=== PATIENT | male | born 1980 | race Caucasian/White ===

== ENCOUNTER 2022-02-03 08:29 | Emergency (ER) | payer SELFPAY ==
[2022-02-03] VITALS (8 sets, daily range): BP systolic 105–153; BP diastolic 57–88; PULSE 41–55; RESP 14–23; TEMP 36.1; O2SAT 97–100; BMI 20.3
--- NOTE | 2022-02-03 08:58 | ED_ITS ---
HPI - General Adult General Chief complaint: Abdominal Pain Stated complaint: Abd pain, vomiting, weakness, chills, Time Seen by Provider: 02/03/22 08:58 Source: patient Mode of arrival: Ambulatory History of Present Illness HPI narrative: 41-year-old gentleman with no significant medical history notes that he typically has a low heart rate is otherwise quite healthy having a usual day yesterday until he went to bed and began having upper abdominal bandlike pain just above his umbilicus. Significant vomiting no diarrhea he is passing a small amount of flatus he describes no fevers but he does get diaphoretic with the emesis. He has no cough, palpitations, dyspnea, orthopnea. He is not complaining of headache however he does feel a near syncopal sensation with the severity of his abdominal pain. He describes no recent trauma or infectious disease. On further questioning he notes that he chronically has mid epigastric pain, does not have a regular physician. He does not typically have her nausea vomiting or with this pain. Related Data Previous Rx's Medication Instructions Recorded omeprazole 40 mg capsule,delayed 40 mg PO DAILY #30 caps 02/03/22 release ondansetron 4 mg disintegrating 4 mg PO Q8H PRN nausea and 02/03/22 tablet vomiting #20 tabs Allergies Allergy/AdvReac Type Severity Reaction Status Date / Time No Known Drug Allergies Allergy Verified 02/03/22 08:38 Review of Systems Review of Systems Narrative: Remainder of complete review of systems is otherwise unremarkable except for that included in the HPI. Patient History Substance Use Type: marijuana Exam Initial Vital Signs Initial Vital Signs: Vital Signs Temperature 96.9 F L 02/03/22 08:33 Pulse Rate 54 L 02/03/22 08:33 Respiratory Rate 18 02/03/22 08:33 Blood Pressure 130/69 02/03/22 08:33 Pulse Oximetry 97 02/03/22 08:33 Oxygen Delivery Method 02/03/22 08:33 General: Pale, deep circles under his eyes, appears to be in pain but Able to give a complete and coherent history. Well-nourished well-developed HEENT: dry mucous membranes, normal sclera with reactive pupils, Neck: supple Respiratory: Lungs are clear to auscultation, no wheezing no rales no rhonchi. Full and symmetrical air movement Cardiac: Regular rate and rhythm no murmurs no bruits Abdomen: Soft, mild diffuse upper abdominal tenderness, good bowel tones, no flank pain Skin: Warm and dry, no rashes Neurologic: Grossly neurologically intact with no obvious asymmetries or abnormalities Extremities: No trauma, well perfused Psych: Cooperative, appropriate insight and affect Course Orders Ordered: ED Orders 02/03/22 08:30 Complete Blood Count AUTO DIFF Stat Comprehensive Metabolic Panel Stat Lactate (Lactic Acid) Stat Lipase Stat Magnesium Stat Troponin I Stat 02/03/22 08:40 EKG-12 Lead Stat 02/03/22 08:53 COVID19 -Nasal RAPID/Pre-Proc Stat 02/03/22 09:06 Urinalysis and Microscopic Stat 02/03/22 09:42 CT abdomen pelvis w con Stat Hydromorphone HCl (Hydromorphone 0.5 Mg Inj) 0.5 mg IV Q15MIN PRN PRN Reason: Pain, Last Admin: 02/03/22 12:07 Dose: 0.5 mg Documented By: Admin: 02/03/22 09:14 Dose: 0.5 mg Documented By: JENNIFER Discontinued Medications Sodium Chloride (Normal Saline 0.9%) 1,000 mls @ 1,000 mls/hr IV BOLUS ONE Stop: 02/03/22 10:05 Last Infusion: 02/03/22 12:01 Dose: 0 mls/hr Documented By: Admin: 02/03/22 09:14 Dose: 1,000 mls/hr Documented By: JENNIFER Sodium Chloride (Normal Saline 0.9%) 1,000 mls @ 1,000 mls/hr IV BOLUS ONE Stop: 02/03/22 14:06 Last Infusion: 02/03/22 14:16 Dose: 0 mls/hr Documented By: Admin: 02/03/22 13:22 Dose: 1,000 mls/hr Documented By: AMBROSIO Ondansetron HCl (Ondansetron 4 Mg/2 Ml Inj) 4 mg IV NOW ONE Stop: 02/03/22 09:07 Last Admin: 02/03/22 09:13 Dose: 4 mg Documented By: JENNIFER Pantoprazole Sodium (Pantoprazole 40 Mg Vial) 80 mg IV NOW ONE Stop: 02/03/22 13:08 Last Admin: 02/03/22 13:24 Dose: 80 mg Documented By: AMBROSIO Vital Signs Vital signs: Vital Signs - 8 hr 02/03/22 08:33 02/03/22 09:12 02/03/22 09:30 Temperature 96.9 F L Pulse Rate 54 L 44 L Respiratory Rate 18 23 Blood Pressure 130/69 153/82 H Pulse Oximetry 97 100 Oxygen Delivery Method Room Air 02/03/22 09:30 02/03/22 09:49 02/03/22 09:49 Temperature Pulse Rate 44 L 45 L Respiratory Rate 23 16 Blood Pressure 138/81 Pulse Oximetry 97 100 Oxygen Delivery Method 02/03/22 10:00 02/03/22 10:00 02/03/22 10:30 Temperature Pulse Rate 41 L Respiratory Rate 23 Blood Pressure 150/88 H 138/82 Pulse Oximetry 98 Oxygen Delivery Method 02/03/22 10:30 02/03/22 11:00 02/03/22 11:00 Temperature Pulse Rate 43 L 45 L Respiratory Rate 16 22 Blood Pressure 131/81 Pulse Oximetry 100 100 Oxygen Delivery Method 02/03/22 14:00 Temperature Pulse Rate 55 L Respiratory Rate 14 Blood Pressure 105/57 L Pulse Oximetry 98 Oxygen Delivery Method Room Air Medical Decision Making Lab Data Result diagrams: 02/03/22 08:30 02/03/22 08:30 Labs: Lab Results 02/03/22 02/03/22 02/03/22 Range/Units 08:30 08:30 08:30 WBC 12.3 H (4.5-11.0) X10^3/uL RBC 5.44 (4.5-5.9) X10^6/uL Hgb 15.9 (13.5-17.5) g/dL Hct 46.5 (41-53) % MCV 85.5 (80-100) fL MCH 29.2 (26-34) PG MCHC 34.1 (30-36) % RDW 14.0 (11.6-14.8) % Plt Count 271 (150-400) X10^3/uL Neut % (Auto) 93.6 H (50-75) % Lymph % (Auto) 4.0 L (25-40) % Bill[place] % (Auto) 2.2 L (3-14) % Eos % (Auto) 0.1 L (2-4) % Baso % (Auto) 0.1 (0-2) % Neut # (Auto) 21761 H (9885-1835) /uL Lymph # (Auto) 500 L (0721-9745) /uL [place] # (Auto) 300 (0-900) /uL Eos # (Auto) 0 (0-450) /uL Baso # (Auto) 0 (0-100) /uL Sodium 138 (137-145) mmol/L Potassium 3.7 (3.4-5.1) mmol/L Chloride 101 (98-107) mmol/L Carbon Dioxide 24 (22-32) mmol/L BUN 19 (9-20) mg/dL Creatinine 0.62 L (0.66-1.25) mg/dL Estimated GFR > 60 (>60) mL/min BUN/Creatinine Ratio 30.6 H (6-22) Glucose 114 H (70-100) mg/dL Lactate (0.7-2.1) mmol/L Calcium 9.7 (8.4-10.2) mg/dL Magnesium 2.0 (1.6-2.3) mg/dL Total Bilirubin 1.5 H (0.2-1.3) mg/dL AST 32 (17-59) IU/L ALT 19 (<50) IU/L Alkaline Phosphatase 111 (38-126) U/L Troponin I < 0.012 (0.01-0.034) ng/mL Total Protein 8.0 (6.3-8.2) g/dL Albumin 4.8 (3.5-5.0) g/dL Globulin 3.2 (1.7-4.1) g/dL Albumin/Globulin Ratio 1.5 (1.0-2.8) Lipase 38 (23-300) U/L SARS-CoV-2 (PCR) (Negative) 02/03/22 02/03/22 02/03/22 Range/Units 08:30 08:53 12:13 WBC (4.5-11.0) X10^3/uL RBC (4.5-5.9) X10^6/uL Hgb (13.5-17.5) g/dL Hct (41-53) % MCV (80-100) fL MCH (26-34) PG MCHC (30-36) % RDW (11.6-14.8) % Plt Count (150-400) X10^3/uL Neut % (Auto) (50-75) % Lymph % (Auto) (25-40) % [place] % (Auto) (3-14) % Eos % (Auto) (2-4) % Baso % (Auto) (0-2) % Neut # (Auto) (4201-3916) /uL Lymph # (Auto) (6018-8192) /uL Bill[place] # (Auto) (0-900) /uL Eos # (Auto) (0-450) /uL Baso # (Auto) (0-100) /uL Sodium (137-145) mmol/L Potassium (3.4-5.1) mmol/L Chloride (98-107) mmol/L Carbon Dioxide (22-32) mmol/L BUN (9-20) mg/dL Creatinine (0.66-1.25) mg/dL Estimated GFR (>60) mL/min BUN/Creatinine Ratio (6-22) Glucose (70-100) mg/dL Lactate 2.2 H 1.5 (0.7-2.1) mmol/L Calcium (8.4-10.2) mg/dL Magnesium (1.6-2.3) mg/dL Total Bilirubin (0.2-1.3) mg/dL AST (17-59) IU/L ALT (<50) IU/L Alkaline Phosphatase (38-126) U/L Troponin I (0.01-0.034) ng/mL Total Protein (6.3-8.2) g/dL Albumin (3.5-5.0) g/dL Globulin (1.7-4.1) g/dL Albumin/Globulin Ratio (1.0-2.8) Lipase (23-300) U/L SARS-CoV-2 (PCR) Negative (Negative) Imaging Data CT scan - abdomen/pelvis: Radiologist's Impression: FINDINGS:? Image quality:? Excellent.? ? Lung bases:? Unremarkable. Heart:? No significant findings. ? ABDOMEN: Liver:? 1.6 cm intermediate attenuation lesion in the posterior aspect of segment 2 is nonspecific, but may represent a meningioma.? Additional subcentimeter circumscribed hypoattenuating lesions he in the liver are most likely cysts.? Mild focal fatty infiltration adjacent to the falciform ligament. Gallbladder:? Unremarkable. Biliary ducts:? Unremarkable.? ? Pancreas:? Unremarkable.? ? Spleen:? Unremarkable.? ? Adrenal Glands:? Unremarkable.? ? Kidneys and Ureters:? Unremarkable.? ? ? Stomach and Bowel:? Stomach is moderately distended with food material.? Probable peristaltic contraction within the midportion of the stomach.? Small bowel loops and colon are unremarkable.? Normal appendix.? Peritoneum:? No abnormal intraperitoneal fluid.? No free air.? ? Ventral Wall: ? Tiny fat containing periumbilical hernia.? Abdominal Nodes:? No retroperitoneal or mesenteric adenopathy by size criteria.? Vessels:? Aorta and inferior vena cava are normal in size.? ? PELVIS: Pelvic Organs:? Unremarkable.? ? Bladder:? Unremarkable.? ? Pelvic Nodes: No enlarged lymph nodes.? Miscellaneous: No hernias are seen. ? ? ? Bones:? Anterior osseous bridging is seen in the sacroiliac joints bilaterally, most likely degenerative in nature. ? ? IMPRESSION:? 1. No acute abnormality in the abdomen or pelvis. 2. Nonspecific hypoattenuating lesion in the left hepatic lobe, which is indeterminate but is most likely a hemangioma.? Recommend follow-up liver protocol MRI or CT for further characterization. ? ? Dictated by: Agapito Mensah M.D. on 02/03/2022 at 9:55 ? ? [facility] Narrative Medical decision making narrative: 41-year-old gentleman with no primary care provider presents complaining of significant nausea vomiting and abdominal pain. Labs initially showed an elevated lactate this come down nicely with fluids. CT scan of the abdomen is essentially benign. On further questioning he notes that he frequently has epigastric pain and has not tried proton pump inhibitors. He has been notably bradycardic throughout his emergency room stay and he states that that is his baseline. Any time he has been involved with medical providers they always c omment on his very slow heart rate. He is not describing any bloody emesis or blood in his stool. I suspect that he likely has some chronic gastritis if not gastric ulcers and has come down with a viral gastroenteritis to cause this severe acute vomiting. After 2 L of fluid he is appropriately hydrated and tolerating p.o.. Will give him a prescription for Zofran as well as Protonix and encouraged him to follow-up with primary care provider. If he continues to have the epigastric pain he likely would benefit from an upper endoscopy. At this time there is no evidence of intra-abdominal abscess, infection, surgical emergency or reason for hospitalization. He is otherwise [facility] Dis[facility] Departure Patient Disposition: Home Clinical Impression: Nausea & vomiting Qualifiers: Vomiting type: unspecified Qualified Code(s): R11.2 - Nausea with vomiting, unspecified Abdominal pain Qualifiers: Abdominal location: upper abdomen, unspecified Qualified Code(s): R10.10 - Upper abdominal pain, unspecified Instructions: DI for Nausea -- Adult Activity Restrictions/Additional Instructions: Thank you for coming in today Your blood work and CT scan of your abdomen today or actually very reassuring, there were no life-threatening diagnoses that were identified. I suspect that you have 2 issues going on. The chronic abdominal pain that may be irritation to the lining of your stomach although it to an ulcer. For this I am going to suggest that you take 4 weeks of omeprazole 40 mg daily. On top of this, I suspect you have 1 of the viruses that seems to be quite popular these days causing quite a bit of vomiting. Most people are finding that the vomiting resolves within 24-48 hours. For this I am going to give you an additional prescription for Zofran to help with the nausea. Please try to keep yourself well hydrated. It is important that you follow-up with a regular doctor. If you continue to bell ve the abdominal pain, you may need to see a boat cleaner and have an upper endoscopy, the scope to look into your stomach If you find that you are getting worse or develop any new symptoms, please feel free to return to the emergency department for further evaluation. Prescriptions: New ondansetron 4 mg tablet,disintegrating 4 mg PO Q8H PRN (Reason: nausea and vomiting) Qty: 20 0RF omeprazole 40 mg capsule,delayed release(DR/EC) 40 mg PO DAILY Qty: 30 1RF
[2022-02-03 09:03] LABS: Add Manual Diff / Slide Review NO; Basophils Absolute Auto 0 /uL (0-100); Basophils Percent Auto 0.1 % (0-2); Eosinophils Absolute Auto 0 /uL (0-450); Eosinophils Percent Auto 0.1 % (2-4); Hematocrit 46.5 % (41-53); Hemoglobin 15.9 g/dL (13.5-17.5); Lymphocytes Absolute Auto 500 /uL (1100-4500); Mean Corpuscular HGB Conc 34.1 % (30-36); Mean Corpuscular Hemoglobin 29.2 PG (26-34); Mean Corpuscular Volume 85.5 fL (80-100); Monocytes Absolute Auto 300 /uL (0-900); Monocytes Percent Auto 2.2 % (3-14); Neutrophils Absolute Auto 11600 /uL (1500-7000); Neutrophils Percent Auto 93.6 % (50-75); Platelet Count 271 X10^3/uL (150-400); Red Blood Cell Count 5.44 X10^6/uL (4.5-5.9); White Blood Cell Count 12.3 X10^3/uL (4.5-11.0)
[2022-02-03] MEDS: ONDANSETRON 4 MG/2 ML INJ IV (09:13)
[2022-02-03] MEDS: HYDROMORPHONE 0.5 MG INJ IV ×2 (09:14→12:07)
[2022-02-03] MEDS: SODIUM CHLORIDE 0.9% 1,000 ML 1000 ML IV ×2 (09:14→13:22)
[2022-02-03 09:17] LABS: COVID19 -Nasal RAPID Negative (Negative)
[2022-02-03 09:28] LABS: Alanine Aminotransferase 19 IU/L (<50); Albumin 4.8 g/dL (3.5-5.0); Albumin Globulin Ratio 1.5 (1.0-2.8); Alkaline Phosphatase 111 U/L (38-126); Aspartate Aminotransferase 32 IU/L (17-59); BUN Creatinine Ratio 30.6 (6-22); Bilirubin Total 1.5 mg/dL (0.2-1.3); Blood Urea Nitrogen 19 mg/dL (9-20); Calcium 9.7 mg/dL (8.4-10.2); Carbon Dioxide 24 mmol/L (22-32); Chloride 101 mmol/L (98-107); Estimated Glomerular Filt Rate > 60 mL/min (>60); Globulin 3.2 g/dL (1.7-4.1); Glucose 114 mg/dL (70-100); HEMOLYSIS 23 (0-50); Lipase 38 U/L (23-300); Potassium 3.7 mmol/L (3.4-5.1); Sodium 138 mmol/L (137-145)
--- NOTE | 2022-02-03 09:42 | DI.CT.S_ITS ---
PROCEDURE: CT ABDOMEN PELVIS W CON INDICATIONS: acute onset severe upper/mid abdominal pain TECHNIQUE: After the administration of intravenous contrast, axial sections acquired from the lung bases to the pubic symphysis. Coronal and sagittal reformats were performed. For radiation dose reduction, the following was used: automated exposure control, adjustment of mA and/or kV according to patient size. COMPARISON: None. FINDINGS: Image quality: Excellent. Lung bases: Unremarkable. Heart: No significant findings. ABDOMEN: Liver: 1.6 cm intermediate attenuation lesion in the posterior aspect of segment 2 is nonspecific, but may represent a meningioma. Additional subcentimeter circumscribed hypoattenuating lesions he in the liver are most likely cysts. Mild focal fatty infiltration adjacent to the falciform ligament. Gallbladder: Unremarkable. Biliary ducts: Unremarkable. Pancreas: Unremarkable. Spleen: Unremarkable. Adrenal Glands: Unremarkable. Kidneys and Ureters: Unremarkable. Stomach and Bowel: Stomach is moderately distended with food material. Probable peristaltic contraction within the midportion of the stomach. Small bowel loops and colon are unremarkable. Normal appendix. Peritoneum: No abnormal intraperitoneal fluid. No free air. Ventral Wall: Tiny fat containing periumbilical hernia. Abdominal Nodes: No retroperitoneal or mesenteric adenopathy by size criteria. Vessels: Aorta and inferior vena cava are normal in size. PELVIS: Pelvic Organs: Unremarkable. Bladder: Unremarkable. Pelvic Nodes: No enlarged lymph nodes. Miscellaneous: No hernias are seen. Bones: Anterior osseous bridging is seen in the sacroiliac joints bilaterally, most likely degenerative in nature. IMPRESSION: 1. No acute abnormality in the abdomen or pelvis. 2. Nonspecific hypoattenuating lesion in the left hepatic lobe, which is indeterminate but is most likely a hemangioma. Recommend follow-up liver protocol MRI or CT for further characterization. Dictated by: Agapito Mensah M.D. on 02/03/2022 at 9:55 Approved by: Agapito Mensah M.D. on 02/03/2022 at 10:03
[2022-02-03 09:55] LABS: Lactate (Lactic Acid) 2.2 mmol/L (0.7-2.1)
[2022-02-03 10:08] LABS: Troponin I < 0.012 ng/mL (0.01-0.034)
[2022-02-03 11:45] LABS: Reflexed Lactate in 2 Hours Y
[2022-02-03 12:47] LABS: Lactate 2HR (Lactic Acid Rflx) 1.5 mmol/L (0.7-2.1)
[2022-02-03] MEDS: PANTOPRAZOLE 40 MG VIAL 80 MG IV (13:24)
== END 2022-02-03 14:28 | disposition home or self-care (01) ==
PROVIDERS: Emergency Provider Emergency Medicine
DX: R10.10 Upper abdominal pain, unspecified (principal); R11.2 Nausea with vomiting, unspecified; R51.9 Headache, unspecified; R00.1 Bradycardia, unspecified; Z20.822 Contact with and (suspected) exposure to COVID-19
CPT/HCPCS: 36415; 74177; 80053; 83605; 83690; 83735; 84484; 85025; 87635; 93005; 93010; 96361; 96374; 96375; 96376; 99284; C9803; C9113; J1170; J2405